=== PATIENT | male | born 1995 | race African-American/Black ===

== ENCOUNTER 2016-12-04 00:45 | Emergency (ER) | payer OTHER ==
[~2016-12-04] VITALS: Ht 185.4 cm; Wt 70.3 kg
[~2016-12-04 00:45] MED LIST: CIPRO500 MG PO; CIPROFLOXACIN500 M1 PO; FLAGYL500 MG PO; HYDROCODONE-AP1 EAC6 PO; NOHOMEMEDICATIONS; NORCO 10-325 T1 EACH PO; ONDANSETRON HCL4 M2 PO; PEPTO-BISMOL1 TAB PO; PHENERGAN 25 MG25 M1 PO; ZOFRAN ODT4 MG PO
[2016-12-04 01:37] LABS: URINE BILIRUBIN NEGATIVE (Negative); URINE BLOOD NEGATIVE (Negative); URINE COLOR YELLOW; URINE GLUCOSE-RANDOM* NEGATIVE (Negative); URINE KETONES 2+ (Negative); URINE NITRITE NEGATIVE (Negative); URINE PROTEIN (DIPSTICK) 1+ (Negative)
[2016-12-04 01:42] LABS: HEMATOCRIT 42.1 % (42.0-52.0); HEMOGLOBIN 14.7 gm/dL (14.0-18.0); MCH 33.7 pg (26.0-34.0); MCHC 34.9 g/dL (28.0-37.0); MCV 96.7 fL (80.0-100.0); PLATELET COUNT 185 thou/uL (150-400); RBC 4.35 mil/uL (4.50-6.00); RDW 12.3 % (10.5-14.5); WBC 17.5 thou/uL (4.0-11.0)
[2016-12-04 01:44] LABS: MANUAL DIFF YES
[2016-12-04 01:48] LABS: BACTERIA None Seen /HPF (None Seen); CASTS None Seen /LPF (None Seen); CRYSTALS None Seen /LPF (None Seen); SQUAMOUS None Seen /LPF (0-3); URINE RBC None Seen /HPF (0-2); URINE WBC None Seen /HPF (0-5)
[2016-12-04 01:50] LABS: CALCIUM 9.3 mg/dL (8.5-10.1); CREATININE 1.2 mg/dL (0.7-1.3); POTASSIUM 3.5 mmol/L (3.5-5.1)
[2016-12-04 01:56] LABS: ALBUMIN 4.1 g/dL (3.4-5.0); DIRECT BILIRUBIN 0.1 mg/dL (<0.1-0.3); TOTAL BILIRUBIN 0.7 mg/dL (<0.1-1.0); TOTAL PROTEIN 7.2 g/dL (6.4-8.2)
[2016-12-04] MEDS ORDERED: PHENERGAN 25 MG25 M1 PO (02:00)
[2016-12-04] MEDS ORDERED: PROMS25 WY RECTAL (02:00)
[2016-12-04 02:11] LABS: ABSOLUTE NEUTROPHILS 15.8 thou/uL (1.4-8.2); TOTAL CELL COUNT 100
== END 2016-12-04 02:31 | disposition home or self-care (01) ==
LOC: ER 00:45
PROVIDERS: Emergency Medicine
DX: R11.2 Nausea with vomiting, unspecified (principal); R10.9 Unspecified abdominal pain; J45.909 Unspecified asthma, uncomplicated; F17.210 Nicotine dependence, cigarettes, uncomplicated; F15.10 Other stimulant abuse, uncomplicated

== ENCOUNTER 2018-05-14 15:09 | Inpatient (IN) | payer OTHER ==
[~2018-05-14] VITALS: Ht 180.3 cm; Wt 72.6 kg
[~2018-05-14 15:09] MED LIST changes: +PROMS25 WY RECTAL
[2018-05-14 15:11] VITALS: BP 151/100
[2018-05-14 15:33] LABS: ABSOLUTE NEUTROPHILS 8.4 thou/uL (1.4-8.2); BASOPHILS 0.4 % (0.0-2.0); EOSINOPHILS 1.6 % (0.0-3.0); HEMOGLOBIN 14.3 gm/dL (14.0-18.0); LYMPHOCYTES 14.8 % (24.0-44.0); MCH 32.5 pg (26.0-34.0); MCHC 33.3 g/dL (28.0-37.0); MCV 97.6 fL (80.0-100.0); MONOCYTES 8.4 % (1.0-8.0); PLATELET COUNT 273 thou/uL (150-400); POLYS 74.8 % (36.0-66.0); RDW 12.5 % (10.5-14.5); WBC 11.2 thou/uL (4.0-11.0)
[2018-05-14 15:38] LABS: CREATININE 1.3 mg/dL (0.7-1.3); POTASSIUM 3.7 mmol/L (3.5-5.1)
[2018-05-14 15:44] LABS: ALBUMIN 4.5 g/dL (3.4-5.0); TOTAL BILIRUBIN 0.8 mg/dL (<0.1-1.0); TOTAL PROTEIN 8.2 g/dL (6.4-8.2)
[2018-05-14] MEDS ORDERED: PHENERGAN 25 MG25 M1 PO (17:03)
[2018-05-14 18:09] VITALS: BP 123/55
[2018-05-14 19:11] VITALS: BP 121/57
[2018-05-14 19:47] VITALS: BP 125/67
[2018-05-15 03:29] VITALS: BP 136/91
[2018-05-15 03:42] LABS: URINE CLARITY CLEAR; URINE COLOR YELLOW
[2018-05-15 03:43] LABS: URINE BILIRUBIN 1+ (Negative); URINE BLOOD NEGATIVE (Negative); URINE GLUCOSE-RANDOM* NEGATIVE (Negative); URINE KETONES 2+ (Negative); URINE NITRITE-REFLEX NEGATIVE (Negative); URINE PROTEIN (DIPSTICK) TRACE (Negative); URINE SPECIFIC GRAVITY 1.025 (1.005-1.035)
[2018-05-15 03:44] LABS: URINE LEUKOCYTES-REFLEX NEGATIVE (Negative)
[2018-05-15 03:45] LABS: ICTOTEST (BILI CONFIRMATORY) Positive (Negative)
[2018-05-15 03:51] LABS: AMP/METHAMP Negative (Negative); BARBITURATES Negative (Negative); BENZODIAZEPINES Negative (Negative); COCAINE Negative (Negative); METHADONE Negative (Negative); OPIATES Negative (Negative); PCP Negative (Negative)
[2018-05-15 08:07] VITALS: BP 155/62
[2018-05-15 14:28] VITALS: BP 149/81
[2018-05-15] MEDS ORDERED: PROMETHAZINE-C473 ML PO (16:03)
[2018-05-15] MEDS ORDERED: ZOFRAN 4 MG ORAL4 MG DISSOLVE (16:03)
[2018-05-15] MEDS ORDERED: PROMS25 WY RECTAL (16:03)
[2018-05-15 16:17] VITALS: BP 149/81
== END 2018-05-15 17:11 | disposition home or self-care (01) | DRG 103 ==
LOC: ER 15:09 → EROBS 18:05 → 4W 18:05
PROVIDERS: Physician Assistant; ADMIT Internal Medicine
DX: G43.A0 Cyclical vomiting, in migraine, not intractable (principal); J45.909 Unspecified asthma, uncomplicated; F17.210 Nicotine dependence, cigarettes, uncomplicated; Z79.899 Other long term (current) drug therapy
CPT/HCPCS: 10045

== ENCOUNTER 2018-12-10 03:14 | Emergency (ER) | payer OTHER ==
[~2018-12-10] VITALS: Ht 180.3 cm; Wt 72.6 kg
[~2018-12-10 03:14] MED LIST changes: +PROMETHAZINE-C473 ML PO; +ZOFRAN 4 MG ORAL4 MG DISSOLVE
[2018-12-10 03:42] LABS: ABSOLUTE NEUTROPHILS 12.5 thou/uL (1.4-8.2); BASOPHILS 0.4 % (0.0-2.0); HEMATOCRIT 42.8 % (42.0-52.0); HEMOGLOBIN 14.5 gm/dL (14.0-18.0); MCH 32.9 pg (26.0-34.0); MCHC 33.7 g/dL (28.0-37.0); MCV 97.5 fL (80.0-100.0); MONOCYTES 4.3 % (1.0-8.0); PLATELET COUNT 242 thou/uL (150-400); POLYS 91.3 % (36.0-66.0); RBC 4.39 mil/uL (4.50-6.00); RDW 12.4 % (10.5-14.5); WBC 13.7 thou/uL (4.0-11.0)
[2018-12-10 03:45] LABS: CALCIUM 10.1 mg/dL (8.5-10.1); CREATININE 1.3 mg/dL (0.7-1.3); POTASSIUM 3.8 mmol/L (3.5-5.1)
[2018-12-10 03:51] LABS: ALBUMIN 4.6 g/dL (3.4-5.0); TOTAL BILIRUBIN 0.6 mg/dL (<0.1-1.0); TOTAL PROTEIN 8.7 g/dL (6.4-8.2)
[2018-12-10] MEDS ORDERED: PROMS25 WY RECTAL (04:01)
[2018-12-10] MEDS ORDERED: PEPCID40 MG PO (04:01)
[2018-12-10] MEDS ORDERED: PHENERGAN 25 MG25 MG PO (04:01)
[2018-12-10] MEDS ORDERED: BENTYL 20 MG TA20 M1 PO (05:05)
[2018-12-10 05:09] LABS: URINE BILIRUBIN NEGATIVE (Negative); URINE BLOOD NEGATIVE (Negative); URINE CLARITY CLEAR; URINE COLOR YELLOW; URINE GLUCOSE-RANDOM* NEGATIVE (Negative); URINE KETONES 2+ (Negative); URINE LEUKOCYTES-REFLEX NEGATIVE (Negative); URINE NITRITE-REFLEX NEGATIVE (Negative); URINE PROTEIN (DIPSTICK) TRACE (Negative); URINE SPECIFIC GRAVITY 1.015 (1.005-1.035); URINE UROBILINOGEN 0.2 E.U./dl (0.2-1.0)
[2018-12-10 05:17] VITALS: BP 132/64
[2018-12-10 05:17] LABS: AMP/METHAMP Negative (Negative); BARBITURATES Negative (Negative); BENZODIAZEPINES Negative (Negative); COCAINE POSITIVE (Negative); METHADONE Negative (Negative); OPIATES Negative (Negative); PCP Negative (Negative)
[2018-12-11] MEDS ORDERED: ONDANSETRON HCL4 M2 PO (22:06)
== END 2018-12-10 05:38 | disposition home or self-care (01) ==
LOC: ER 03:14
PROVIDERS: Emergency Medicine
DX: K31.89 Other diseases of stomach and duodenum (principal); R11.2 Nausea with vomiting, unspecified; R10.13 Epigastric pain; F19.10 Other psychoactive substance abuse, uncomplicated; F17.210 Nicotine dependence, cigarettes, uncomplicated; J45.909 Unspecified asthma, uncomplicated; Z87.19 Personal history of other diseases of the digestive system

== ENCOUNTER 2018-12-11 18:57 | Emergency (ER) | payer OTHER ==
[~2018-12-11] VITALS: Ht 180.3 cm; Wt 72.6 kg
[~2018-12-11 18:57] MED LIST changes: +BENTYL 20 MG TA20 M1 PO; +PEPCID40 MG PO; +PHENERGAN 25 MG25 MG PO
[2018-12-11 19:30] LABS: ABSOLUTE NEUTROPHILS 8.1 thou/uL (1.4-8.2); BASOPHILS 0.3 % (0.0-2.0); EOSINOPHILS 0.1 % (0.0-3.0); HEMOGLOBIN 14.9 gm/dL (14.0-18.0); LYMPHOCYTES 9.2 % (24.0-44.0); MCH 33.8 pg (26.0-34.0); MCHC 34.6 g/dL (28.0-37.0); MCV 97.7 fL (80.0-100.0); MONOCYTES 8.4 % (1.0-8.0); PLATELET COUNT 206 thou/uL (150-400); RDW 12.3 % (10.5-14.5); WBC 9.9 thou/uL (4.0-11.0)
[2018-12-11 19:36] LABS: CALCIUM 9.7 mg/dL (8.5-10.1); CREATININE 1.1 mg/dL (0.7-1.3); POTASSIUM 3.7 mmol/L (3.5-5.1)
[2018-12-11 19:42] LABS: ALBUMIN 4.1 g/dL (3.4-5.0); TOTAL BILIRUBIN 0.8 mg/dL (<0.1-1.0)
[2018-12-11 21:36] LABS: URINE BILIRUBIN NEGATIVE (Negative); URINE BLOOD NEGATIVE (Negative); URINE CLARITY SL CLOUDY; URINE COLOR YELLOW; URINE GLUCOSE-RANDOM* NEGATIVE (Negative); URINE KETONES 2+ (Negative); URINE NITRITE-REFLEX NEGATIVE (Negative); URINE PROTEIN (DIPSTICK) 1+ (Negative)
[2018-12-11 21:38] LABS: URINE LEUKOCYTES-REFLEX 2+ (Negative)
[2018-12-11] MEDS ORDERED: ONDANSETRON HCL4 M2 PO (22:06)
[2018-12-11 22:08] LABS: SQUAMOUS 0-3 Few /LPF (0-3)
[2018-12-11 22:09] LABS: BACTERIA-REFLEX 1-9 Few /HPF (None Seen); CASTS None Seen /LPF (None Seen); MUCUS 4-6 Moderate strn/LPF (None Seen); URINE RBC 3-10 Few /HPF (0-2); URINE WBC-REFLEX 6-15 Few /HPF (0-5)
[2018-12-11 22:39] VITALS: BP 142/67
== END 2018-12-11 22:39 | disposition home or self-care (01) ==
LOC: ER 18:57
PROVIDERS: Physician Assistant
DX: E86.0 Dehydration (principal); R10.84 Generalized abdominal pain; J45.909 Unspecified asthma, uncomplicated; Z87.19 Personal history of other diseases of the digestive system

== ENCOUNTER 2019-05-18 01:24 | Emergency (ER) | payer OTHER ==
[~2019-05-18] VITALS: Ht 182.9 cm; Wt 72.6 kg
[2019-05-18 02:32] LABS: ABSOLUTE NEUTROPHILS 10.2 thou/uL (1.4-8.2); BASOPHILS 0.2 % (0.0-2.0); EOSINOPHILS 0.2 % (0.0-3.0); HEMATOCRIT 43.1 % (42.0-52.0); HEMOGLOBIN 14.4 gm/dL (14.0-18.0); LYMPHOCYTES 3.9 % (24.0-44.0); MCH 33.2 pg (26.0-34.0); MCHC 33.4 g/dL (28.0-37.0); MCV 99.2 fL (80.0-100.0); MONOCYTES 8.3 % (1.0-8.0); PLATELET COUNT 182 thou/uL (150-400); POLYS 87.4 % (36.0-66.0); RBC 4.34 mil/uL (4.50-6.00); RDW 12.5 % (10.5-14.5); WBC 11.7 thou/uL (4.0-11.0)
[2019-05-18 02:39] LABS: CALCIUM 9.1 mg/dL (8.5-10.1); POTASSIUM 3.7 mmol/L (3.5-5.1)
[2019-05-18 02:44] LABS: ALBUMIN 3.9 g/dL (3.4-5.0); DIRECT BILIRUBIN 0.1 mg/dL (<0.1-0.2); TOTAL BILIRUBIN 0.6 mg/dL (<0.1-1.0); TOTAL PROTEIN 7.3 g/dL (6.4-8.2)
[2019-05-18 06:15] VITALS: BP 172/84
[2019-05-18 06:24] LABS: URINE BILIRUBIN NEGATIVE (Negative); URINE BLOOD NEGATIVE (Negative); URINE CLARITY CLEAR; URINE COLOR YELLOW; URINE GLUCOSE-RANDOM* NEGATIVE (Negative); URINE KETONES 1+ (Negative); URINE LEUKOCYTES-REFLEX NEGATIVE (Negative); URINE NITRITE-REFLEX NEGATIVE (Negative); URINE PROTEIN (DIPSTICK) 1+ (Negative); URINE SPECIFIC GRAVITY >= 1.030 (1.005-1.035); URINE UROBILINOGEN 0.2 E.U./dl (0.2-1.0)
[2019-05-18 06:31] LABS: AMP/METHAMP Negative (Negative); BARBITURATES Negative (Negative); BENZODIAZEPINES Negative (Negative); COCAINE Negative (Negative); METHADONE Negative (Negative); OPIATES Negative (Negative); PCP Negative (Negative)
[2019-05-18 06:37] LABS: CASTS None Seen /LPF (None Seen); MUCUS >6 Heavy strn/LPF (None Seen); SQUAMOUS >10 Many /LPF (0-3)
[2019-05-18 06:38] LABS: BACTERIA-REFLEX 1-9 Few /HPF (None Seen); CRYSTALS None Seen /LPF (None Seen); URINE RBC 0-2 Rare /HPF (0-2); URINE WBC-REFLEX 6-15 Few /HPF (0-5)
== END 2019-05-18 07:30 | disposition home or self-care (01) ==
LOC: ER 01:24
PROVIDERS: Emergency Medicine
DX: R11.2 Nausea with vomiting, unspecified (principal); R10.84 Generalized abdominal pain; J45.909 Unspecified asthma, uncomplicated; F17.210 Nicotine dependence, cigarettes, uncomplicated

== ENCOUNTER 2019-10-27 19:02 | Inpatient (IN) | payer OTHER ==
[~2019-10-27] VITALS: Ht 182.9 cm; Wt 76.2 kg
[2019-10-27 19:19] VITALS: BP 149/69
[2019-10-27 19:40] LABS: ABSOLUTE NEUTROPHILS 15.4 thou/uL (1.4-8.2); BASOPHILS 0.3 % (0.0-2.0); EOSINOPHILS 1.9 % (0.0-3.0); HEMATOCRIT 42.7 % (42.0-52.0); HEMOGLOBIN 14.6 gm/dL (14.0-18.0); LYMPHOCYTES 8.9 % (24.0-44.0); MCH 33.9 pg (26.0-34.0); MCHC 34.1 g/dL (28.0-37.0); MCV 99.2 fL (80.0-100.0); MONOCYTES 5.3 % (1.0-8.0); PLATELET COUNT 246 thou/uL (150-400); POLYS 83.6 % (36.0-66.0); RDW 12.8 % (10.5-14.5); WBC 18.4 thou/uL (4.0-11.0)
[2019-10-27 19:45] LABS: CALCIUM 9.6 mg/dL (8.5-10.1); CREATININE 1.5 mg/dL (0.7-1.3); POTASSIUM 3.6 mmol/L (3.5-5.1)
[2019-10-27 19:53] LABS: ALBUMIN 4.3 g/dL (3.4-5.0); TOTAL BILIRUBIN 0.7 mg/dL (0.2-1.0); TOTAL PROTEIN 7.7 g/dL (6.4-8.2)
[2019-10-27 21:31] VITALS: BP 146/70
[2019-10-27 21:47] VITALS: BP 142/74
[2019-10-27 22:10] VITALS: BP 133/59
[2019-10-28 01:26] LABS: URINE BILIRUBIN NEGATIVE (Negative); URINE BLOOD NEGATIVE (Negative); URINE CLARITY CLEAR; URINE COLOR YELLOW; URINE GLUCOSE-RANDOM* NEGATIVE (Negative); URINE KETONES 1+ (Negative); URINE LEUKOCYTES-REFLEX NEGATIVE (Negative); URINE NITRITE-REFLEX NEGATIVE (Negative); URINE PROTEIN (DIPSTICK) TRACE (Negative); URINE SPECIFIC GRAVITY 1.025 (1.005-1.035)
[2019-10-28 01:34] LABS: AMP/METHAMP Negative (Negative); BARBITURATES Negative (Negative); BENZODIAZEPINES Negative (Negative); COCAINE Negative (Negative); METHADONE Negative (Negative); OPIATES Negative (Negative); PCP Negative (Negative)
[2019-10-28 05:20] LABS: CALCIUM 8.8 mg/dL (8.5-10.1); CREATININE 1.4 mg/dL (0.7-1.3)
[2019-10-28 05:30] LABS: POTASSIUM 4.7 mmol/L (3.5-5.1)
--- NOTE | 2019-10-28 06:53 | NUR ---
PATIENT ARRIVED ON UNIT AT 2150 VIA CART FROM ED ACCOMPAINED BY ED LOGAN. C/O N/V, MED GIVEN. VOMITED APPROX 500ML. C/O PAIN, MED GIVEN. WAS VERY SLEEPY WHEN ARRIVED ON UNIT. HAD TO WAKE UP SEVERAL TIMES TO GET ADMISSION DONE. IV PATENT IN RFA WITH FLUIDS INFUSING. PATIENT ORIENTED X4 BUT SLEEPY. SLEPT MOST OF NIGHT.
[2019-10-28 08:16] VITALS: BP 166/70
[2019-10-28 09:06] LABS: ABSOLUTE NEUTROPHILS 13.2 thou/uL (1.4-8.2); BASOPHILS 0.1 % (0.0-2.0); HEMATOCRIT 40.6 % (42.0-52.0); HEMOGLOBIN 13.7 gm/dL (14.0-18.0); LYMPHOCYTES 3.1 % (24.0-44.0); MCH 34.2 pg (26.0-34.0); MCHC 33.7 g/dL (28.0-37.0); MCV 101.3 fL (80.0-100.0); MONOCYTES 2.6 % (1.0-8.0); POLYS 94.2 % (36.0-66.0); RBC 4.01 mil/uL (4.50-6.00)
[2019-10-28 13:18] LABS: PLATELET COUNT 212 thou/uL (150-400)
--- NOTE | 2019-10-28 14:44 | NUR ---
INITIAL ASSESSMENT: OMKAR reviewed chart and spoke with nursing and attending physician. Pt was admitted from home due to intractable nausea/vomiting. Pt with hx of pancreatitis/ETOH abuse. Pt does not have health insurance. Referral to [facility]. Discharge is anticipated for tomorrow. SW spoke with pt via phone. Introduced role of SW. Pt is alert/orientated x 4. Pt reports he lives at home with family. Prior to admission, pt was independent with ADLs. No use of DME. Pt states he does not have a PCP. SW offered to provide pt with Health Resource Guide and prescription discount card. Pt agreeable. SW is following to assist as needed with discharge planning.
[2019-10-28 16:21] VITALS: BP 166/70
--- NOTE | 2019-10-28 18:00 | NUR ---
PT HAS HAD SEVERAL EPISODES OF EMESIS TODAY...HAS SLEPT MOST OF DAY...@ 1700 WOKE UP AND BEGAN TOLERATING SMALL AMOUNTS OF CLEAR LIQUIDS...WILL MONITOR
[2019-10-28 19:28] VITALS: BP 159/68
--- NOTE | 2019-10-29 04:07 | NUR ---
ASSESSMENT COMPLETED. PT BEEN SLEEPING MOST OF THE NIGHT.PT HAS HAD SEVERAL EPISODES OF EMESIS. C/O GENERALISED ABDOMINLA PAIN. FENTANYLX1 ORDERED. PT UP AD JESSE IN ROOM. APPEARS TO BE IN NO DISTRESS AT THIS TIME.
[2019-10-29 04:59] VITALS: BP 134/74
[2019-10-29 08:15] VITALS: BP 139/88
--- NOTE | 2019-10-29 15:38 | NUR ---
OMKAR reviewed chart and spoke with nursing and attending physician. Pt is progressing towards goals for discharge. Plan is for pt to discharge home when medically stable. OMKAR faxed Health Resource Guide to nurses station to place on pt's chart for discharge, as pt does not have health insurance. OMKAR is following to assist as needed with discharge planning.
[2019-10-29 17:00] VITALS: BP 148/98
[2019-10-29 20:00] VITALS: BP 149/91
--- NOTE | 2019-10-29 20:45 | NUR ---
PT HAD A 3 OR 4 EPISODES OF EMESIS TODAY...DID GET SOME RELIEF WITH PROMETHAZEIN LIQUID...
--- NOTE | 2019-10-30 04:51 | NUR ---
Assumed pt care at 1900. Pt is A/OX4, VSS. C/o abd pain, N/V medicated per EMAR with some relief reported,no emesis observed by music writer this shift. Up ad kierra encouraged to call for help as needed. IVF infusing via RFA w/o problems. Resting quietly at this time will continue to monitor pt.
[2019-10-30 05:25] VITALS: BP 141/80
[2019-10-30 05:50] LABS: HEMATOCRIT 43.5 % (42.0-52.0); HEMOGLOBIN 14.8 gm/dL (14.0-18.0); MCH 34.1 pg (26.0-34.0); MCHC 34.1 g/dL (28.0-37.0); MCV 99.9 fL (80.0-100.0); RBC 4.35 mil/uL (4.50-6.00); RDW 12.8 % (10.5-14.5); WBC 9.9 thou/uL (4.0-11.0)
[2019-10-30 06:07] LABS: CALCIUM 8.5 mg/dL (8.5-10.1); CREATININE 1.2 mg/dL (0.7-1.3); POTASSIUM 3.9 mmol/L (3.5-5.1)
[2019-10-30 08:47] VITALS: BP 152/108
--- NOTE | 2019-10-30 12:52 | NUR ---
RECEIVED PT'S AROUND 0730; PT. ON BED; AOX4; DURING AM ASSESSMENT NO C/O PAIN; DIET ADVANCED; ABLE TO HAVE BREAKFAST WITHOUT C/O NAUSE OR VOMITING; ADVANCED DIET AT LUNCH; NO C/O NAUSE OR VOMINTING; REQUESTED TO LEAVE AMA AROUND NOON DUE "I'VE BEING HERE FOR 3 DAYS"; EDUCATED ABOUT D/C PROCESS; [facility]. UND[facility]STANDING; REQUESTED TO LEAVE AMA; PHYSICIAN NOTIFIED; NOTIFIED ABOUT NO C/O N/V DURING LUNCH; D/C ORDERS ON PLACED; PT. UPDATED; WORKING ON D/C ORDERS; [facility] UNDERSTANDING;
[2019-10-30 12:55] VITALS: BP 152/108
--- NOTE | 2019-10-30 15:08 | NUR ---
DISCHARGE NOTE: SW reviewed chart and spoke with nursing and attending physician. Pt was discharged home earlier today. Pt had transportation home. No SW needs identified, but is available to assist should needs arise.
== END 2019-10-30 13:17 | disposition home or self-care (01) | DRG 392 ==
LOC: ER 19:02 → EROBS 21:16 → 4S 21:16
PROVIDERS: Nurse Practitioner Family; Physician Assistant; ADMIT Hospitalist; ATTEND Hospitalist
DX: K52.9 Noninfective gastroenteritis and colitis, unspecified (principal); N17.9 Acute kidney failure, unspecified; J45.909 Unspecified asthma, uncomplicated; F19.10 Other psychoactive substance abuse, uncomplicated; F12.188 Cannabis abuse with other cannabis-induced disorder; D72.829 Elevated white blood cell count, unspecified; F17.210 Nicotine dependence, cigarettes, uncomplicated; Z71.51 Drug abuse counseling and surveillance of drug abuser; Z79.899 Other long term (current) drug therapy
CPT/HCPCS: 10195